=== PATIENT | female | born 1975 | race Caucasian/White ===

== ENCOUNTER → 2020-04-20 11:05 | Outpatient (CLI) | payer BC, SELFPAY ==
--- NOTE | 2020-04-20 11:08 | MM_ITS ---
PROCEDURE: MM DIG SCREENING MAMM BI W/CAD Referring Doctor: Jeremy Acuna Patient Age:44Y CLINICAL INDICATION: SCREENING COMPARISON: MG DMDXUAVR DIG MAMM-DX UNI ADD VIEWS-RT from 05/21/2013 MG DMDXUR DIG MAMM-DX UNI-RT from 11/12/2013 MG DMSB DIG MAMM-SCREEN VIKY from 08/26/2014 MG DMSB DIG MAMM-SCREEN VIKY from 11/28/2015 MG DMSB DIG MAMM-SCREEN VIKY W/CAD from 02/18/2017 TECHNIQUE: Standard CC and MLO images were obtained. R2 CAD reviewed. Bilateral digital breast tomosynthesis included. FINDINGS: Heterogeneous breast; patchy areas of denser tissue bilaterally but with stable overall pattern and distribution, similar to prior studies. Mammography is of somewhat decreased sensitivity in breast of this pattern, but no new dominant or definite suspicious mass evident. No suspicious calcifications. CAD computer review highlights no new significant areas of concern Left breast: No new areas of concern. Right breast: No new areas of significant concern. IMPRESSION: No new areas of concern either breast.. Bilateral follow-up 1 year recommended Stable appearance with stable heterogeneous asymmetric breast pattern. BI-RAD Category: 2 Benign Finding(s). FOLLOW-UP: 1YR 1 Year Follow-up (A letter has been sent to the patient regarding results of the study.) Dictated by: Jose Elias Estrada MD 04/26/2020 10:39 Jose Elias Estrada MD in [place] 04/26/2020 10:39
== END ==
PROVIDERS: PCP Internal Medicine; Visit Provider Internal Medicine
DX: Z12.31 Encounter for screening mammogram for malignant neoplasm of breast (principal)
CPT/HCPCS: 77063; 77067

== ENCOUNTER → 2022-04-09 16:09 | Outpatient (CLI) | payer BC, SELFPAY ==
--- NOTE | 2022-04-09 16:12 | MM_ITS ---
PROCEDURE INFORMATION: Exam: MG Bilateral Screening 3D Mammography Exam date and time: 04/09/2022 4:02 PM Age: 46 years old Clinical indication: Screening examination TECHNIQUE: Imaging protocol: Bilateral Screening tomosynthesis and 2D mammography including computer-aided detection (CAD) when performed. COMPARISON: 1. MG MM DIG SCREENING MAMM BI W/CAD 04/20/2020 11:13 AM 2. MG DMSB DIG MAMM-SCREEN VIKY W/CAD 02/18/2017 10:42 AM FINDINGS: MAMMOGRAPHY: Breast composition: The breasts are heterogeneously dense, which may obscure small masses. Mass: None. Architectural distortion: None. Calcifications: No suspicious calcifications. Asymmetric density: None. Skin thickening: None. Axillary adenopathy: None. IMPRESSION: No mammographic evidence of malignancy. Annual screening is recommended unless otherwise clinically indicated. ASSESSMENT: BI-RADS Category 1: Negative
== END ==
PROVIDERS: PCP Internal Medicine; Visit Provider Internal Medicine
DX: Z12.31 Encounter for screening mammogram for malignant neoplasm of breast (principal)
CPT/HCPCS: 77063; 77067

== ENCOUNTER → 2023-05-14 12:54 | Outpatient (CLI) | payer BC, SELFPAY ==
--- NOTE | 2023-05-14 12:59 | MM_ITS ---
PROCEDURE INFORMATION: Exam: MG Bilateral Screening 3D Mammography Exam date and time: 05/14/2023 12:50 PM Age: 48 years old Clinical indication: Screening examination TECHNIQUE: Imaging protocol: Bilateral Screening tomosynthesis and 2D mammography including computer-aided detection (CAD) when performed. COMPARISON: 1. MG MM DIG SCREENING MAMM BI W/CAD 04/09/2022 4:02 PM 2. MG MM DIG SCREENING MAMM BI W/CAD 04/20/2020 11:13 AM 3. MG DMSB DIG MAMM-SCREEN VIKY W/CAD 02/18/2017 10:42 AM 4. MG DMSB DIG MAMM-SCREEN VIKY 11/28/2015 3:34 PM FINDINGS: MAMMOGRAPHY: Breast composition: The breast is heterogeneously dense, which may obscure small masses. Mass: None. Architectural distortion: No new or suspicious architectural distortion. Calcifications: No new or suspicious calcifications are present Asymmetric density: No new or suspicious asymmetric density is present Skin thickening: None. Axillary adenopathy: None. IMPRESSION: No mammographic evidence of malignancy. Annual screening is recommended unless otherwise clinically indicated. ASSESSMENT: BI-RADS Category 1: Negative
== END ==
PROVIDERS: PCP Internal Medicine; Visit Provider Internal Medicine
DX: Z12.31 Encounter for screening mammogram for malignant neoplasm of breast (principal)
CPT/HCPCS: 77063; 77067

== ENCOUNTER 2024-10-21 14:59 | Outpatient (CLI) | payer BC, SELFPAY ==
--- NOTE | 2024-10-21 15:03 | MM_ITS ---
PROCEDURE INFORMATION: Exam: MG Bilateral Screening 3D Mammography Exam date and time: 10/21/2024 3:07 PM Age: 49 years old Clinical indication: Screening examination TECHNIQUE: Imaging protocol: Bilateral Screening tomosynthesis and 2D mammography including computer-aided detection (CAD) when performed. COMPARISON: 1. MG MM DIG SCREENING MAMM BI W/CAD 05/14/2023 12:50 PM 2. MG MM DIG SCREENING MAMM BI W/CAD 04/09/2022 4:02 PM FINDINGS: MAMMOGRAPHY: Breast composition: The breasts are heterogeneously dense, which may obscure small masses. Mass: None. Architectural distortion: None. Calcifications: No suspicious calcifications. Asymmetric density: None. Skin thickening: None. Axillary adenopathy: None. IMPRESSION: No mammographic evidence of malignancy. Annual screening is recommended unless otherwise clinically indicated. ASSESSMENT: BI-RADS Category 1: Negative.
== END 2024-10-21 23:59 | disposition home or self-care (01) ==
LOC: RAD 15:00
PROVIDERS: PCP Internal Medicine; Visit Provider Internal Medicine
DX: Z12.31 Encounter for screening mammogram for malignant neoplasm of breast (principal); R92.333 Mammographic heterogeneous density, bilateral breasts
CPT/HCPCS: 77063; 77067